=== PATIENT | male | born 1965 | race Caucasian/White ===

== ENCOUNTER 2017-09-04 10:46 | Day surgery (SDC) | payer OTHER ==
[2017-09-04] MEDS ORDERED: PROPOFOL 60 ML (14:37)
== END 2017-09-04 15:27 | disposition home or self-care (01) ==
LOC: GIL 10:46
DX: Z12.11 Encounter for screening for malignant neoplasm of colon (principal); K64.8 Other hemorrhoids; K29.60 Other gastritis without bleeding
CPT/HCPCS: 43239; 88305; 88312